=== PATIENT | female | born 1985 | race Caucasian/White ===

== ENCOUNTER 2018-11-09 18:02 | Emergency (ER) | payer MEDICAID ==
[~2018-11-09] VITALS: Ht 172.7 cm; Wt 76.7 kg
[2018-11-09 18:42] VITALS: BP 133/72
--- NOTE | 2018-11-09 19:25 | NUR ---
PT AMBULATED TO BED #12
--- NOTE | 2018-11-09 19:50 | NUR ---
33 Y/O F PRESENTED TO ER COMPLAINING OF ABODMINAL PAIN S/P THIS MORNING. STATES SHE FEELS A SHARP PAIN LOCATED ON HER LOWER ABDOMEN. TOOK A TEST PRIOR TO ADMISSION THAT CAME BACK POSITIVE. ABDOMEN FEELS TENDER ON PALPATION. NO DISCHARGE OR HEMATURIA. NO PAIN VOIDING. NO MEDICAL HISTORY.
--- NOTE | 2018-11-09 19:50 | NUR ---
ULTRASOUND AT BEDSIDE.
[2018-11-09 20:24] LABS: APPEARANCE,URINE CLEAR (CLEAR); BILIRUBIN,URINE NEGATIVE (NEGATIVE); BLOOD, URINE NEGATIVE (NEGATIVE); COLOR,URINE YELLOW (YELLOW); LEUKOCYTE ESTERASE ,URINE NEGATIVE (NEGATIVE); NITRITE, URINE NEGATIVE (NEGATIVE); PH,URINE 5.5 (5.0-9.0); UGLUCOSE NEGATIVE (NEGATIVE)
[2018-11-09 20:47] LABS: BASOPHILS % (AUTO) 0.3 % (0.0-2.0); EOSINOPHILS # (AUTO) 0.1 K/uL (0-0.4); EOSINOPHILS % (AUTO) 1.7 % (0.0-4.0); HEMATOCRIT 38.7 % (36-48); HEMOGLOBIN 12.8 g/dL (12.0-16.0); LYMPHOCYTES % (AUTO) 29.4 % (20.5-51.1); MEAN CORPUSCULAR HEMOGLOBIN 31 pg (27-31); MEAN CORPUSCULAR HGB CONC 33 g/dL (33-37); MEAN CORPUSCULAR VOLUME 92.7 fL (80-94); MONOCYTES # (AUTO) 0.4 K/uL (0.8-1.0); MONOCYTES % (AUTO) 5.4 % (1.7-9.3); NEUTROPHILS # (AUTO) 4.4 K/uL (1.8-7.7); NEUTROPHILS % (AUTO) 63.2 % (42.2-75.2); PLATELET COUNT (AUTO) 204 K/uL (140-450); RED BLOOD CELL COUNT(AUTO) 4.17 MIL/uL (4.20-5.40); RED CELL DISTRIBUTION WIDTH 14.1 % (11.6-13.7)
[2018-11-09 21:03] LABS: ANION GAP 12.6 (8-16); CARBON DIOXIDE 27.7 mmol/L (21-32); CREATININE 0.7 mg/dL (0.6-1.3); POTASSIUM 4.3 mmol/L (3.5-5.1)
[2018-11-09 21:31] VITALS: BP 128/70
--- NOTE | 2018-11-09 21:31 | NUR ---
DILSCHARGE PAPERS GIVEN TO PT. 05/31 PAIN AND TOLLERABLE WITH VSS. RX OF MOTRIN GIVEN. SIDE EFFECTS EXPLAINED. INSTRUTED TO F/U WITH OBGYN/PCP AND WHEN TO RETURN TO ER. PT VERBALLIZED UNDERSTANDING OF DC INSTRUCTIONS. ALL QUESTIONS ANSWERED.
== END 2018-11-09 21:31 | disposition home or self-care (01) ==
LOC: MED 18:02
DX: O21.8 Other vomiting complicating pregnancy (principal); O26.891 Other specified pregnancy related conditions, first trimester; R10.30 Lower abdominal pain, unspecified; Z3A.01 Less than 8 weeks gestation of pregnancy
CPT/HCPCS: 36415; 76801; 80048; 81003; 81025; 84702; 85025; 86900; 86901; 99284; Q0092

== ENCOUNTER 2019-03-09 16:39 | Emergency (ER) | payer MEDICAID ==
[~2019-03-09] VITALS: Ht 172.7 cm; Wt 85.3 kg
[2019-03-09 17:03] VITALS: BP 130/75
--- NOTE | 2019-03-09 17:15 | NUR ---
SENT PT TO L@D BY WHEELCHAIR. REPORT GIVEN. PT WILL GO ROOM 5.
== END 2019-03-09 17:15 | disposition still patient (30) ==
LOC: MED 16:39
DX: O9A.212 Injury, poisoning and certain other consequences of external causes complicating pregnancy, second trimester (principal); O26.892 Other specified pregnancy related conditions, second trimester; R10.30 Lower abdominal pain, unspecified; Z34.92 Encounter for supervision of normal pregnancy, unspecified, second trimester; Z3A.25 25 weeks gestation of pregnancy; W18.2XXA Fall in (into) shower or empty bathtub, initial encounter; Y93.E1 Activity, personal bathing and showering; Y92.89 Other specified places as the place of occurrence of the external cause; Y99.8 Other external cause status
CPT/HCPCS: 81002; 81025; 96372; 99281; 99283

== ENCOUNTER 2019-03-09 17:40 | Observation (INO) | payer MEDICAID ==
[2019-03-09 20:23] VITALS: BP 107/57
== END 2019-03-09 20:07 | disposition home or self-care (01) ==
LOC: MLD 17:40
PROVIDERS: ADMIT Obstetrics & Gynecology; ATTEND Obstetrics & Gynecology
DX: R10.9 Unspecified abdominal pain (principal)
CPT/HCPCS: G0378

== ENCOUNTER 2023-12-12 19:35 | Emergency (ER) | payer MEDICAID ==
[~2023-12-12] VITALS: Ht 172.7 cm; Wt 83.0 kg
[2023-12-12 19:57] VITALS: BP 116/43; PULSE 66; RESP 14; TEMP 98.5; O2SAT 99
== END 2023-12-12 22:21 | disposition home or self-care (01) ==
LOC: MED 19:35
DX: R51.9 Headache, unspecified (principal); M25.551 Pain in right hip
CPT/HCPCS: 99281